=== PATIENT | male | born 1970 ===

== ENCOUNTER 2018-01-17 06:00 | Day surgery (SDC) | payer OTHER ==
[~2018-01-17] VITALS: Ht 167.6 cm; Wt 99.8 kg
[~2018-01-17 06:00] MED LIST: AFEDITAB CR60 MG PO; ARANESP60 MCG/1 M IJ; ASA81 MG PO; COZAAR100 MG PO; FOLIC ACID1 MG PO; LANTUS SOL100 UNIT/1; LASIX20 MG PO; LIPITOR20 MG PO; LOPRESSOR25 MG PO; ROCALTROL0.25 MCG PO; TOPROL XL50 M1 PO
[2018-01-18] MEDS ORDERED: INTESTINEX680 M1 PO (08:24)
[2018-01-18] MEDS ORDERED: ULTRACET PO (08:24)
== END 2018-01-18 08:22 | disposition home or self-care (01) ==
LOC: CIR.AMB 06:00 → SURG 09:00 → EDSTATUS 09:00 → SURG 10:15 → O/R 11:23 → SURH 11:23 → CIR.AMB 01-18 08:22 → SURH 01-18 12:11
DX: D12.8 Benign neoplasm of rectum (principal); N18.6 End stage renal disease; I13.11 Hypertensive heart and chronic kidney disease without heart failure, with stage 5 chronic kidney disease, or end stage renal disease; D12.5 Benign neoplasm of sigmoid colon; Z99.2 Dependence on renal dialysis; E66.01 Morbid (severe) obesity due to excess calories; D50.0 Iron deficiency anemia secondary to blood loss (chronic); D63.1 Anemia in chronic kidney disease

== ENCOUNTER 2018-06-27 10:29 | Inpatient (IN) | payer OTHER ==
[~2018-06-27] VITALS: Ht 167.6 cm; Wt 102.1 kg
[~2018-06-27 10:29] MED LIST changes: +INTESTINEX680 M1 PO; +ULTRACET PO
[2018-07-15] MEDS ORDERED: LASIX20 MG PO (13:06)
[2018-07-15] MEDS ORDERED: CARdura 4MG TABLET PO (13:06)
[2018-07-15] MEDS ORDERED: COZAAR100 MG PO (13:06)
[2018-07-15] MEDS ORDERED: TAMSULOSIN HCL0.4 MG PO (13:06)
[2018-07-15] MEDS ORDERED: NIFEDIPINE ER60 MG PO (13:06)
[2018-07-15] MEDS ORDERED: LIPITOR20 MG PO (13:06)
[2018-07-15] MEDS ORDERED: METOPROLOL TART50 MG PO (13:06)
[2018-07-15] MEDS ORDERED: HYOSCYAMINE0.125 M1 SL (13:06)
[2018-07-15] MEDS ORDERED: Intestinex CAP PO (13:06)
[2018-07-15] MEDS ORDERED: ROCALTROL0.25 MCG PO (13:06)
== END 2018-07-15 14:13 | disposition home or self-care (01) | DRG 329 ==
LOC: SURH 07-04 08:30 → O/R 07-04 08:30 → SURH 07-04 13:00
PROVIDERS: ADMIT Surgery
PROC: 07TC4ZZ Resection of Pelvis Lymphatic, Percutaneous Endoscopic Approach (ICD-10-PCS; 2018-07-04)
PROC: 0DJD8ZZ Inspection of Lower Intestinal Tract, Via Natural or Artificial Opening Endoscopic (ICD-10-PCS; 2018-07-04)
PROC: 4A12X4Z Monitoring of Cardiac Electrical Activity, External Approach (ICD-10-PCS; 2018-07-04)
PROC: 0DTN4ZZ Resection of Sigmoid Colon, Percutaneous Endoscopic Approach (ICD-10-PCS; principal; 2018-07-04 13:00)
PROC: 5A1D70Z Performance of Urinary Filtration, Intermittent, Less than 6 Hours Per Day (ICD-10-PCS; 2018-07-05)
PROC: BW28ZZZ Computerized Tomography (CT Scan) of Head (ICD-10-PCS; 2018-07-09)
PROC: 3E0F7GC Introduction of Other Therapeutic Substance into Respiratory Tract, Via Natural or Artificial Opening (ICD-10-PCS; 2018-07-11)
PROC: 4A033R1 Measurement of Arterial Saturation, Peripheral, Percutaneous Approach (ICD-10-PCS; 2018-07-11)
DX: D12.7 Benign neoplasm of rectosigmoid junction (principal); N18.6 End stage renal disease; I13.11 Hypertensive heart and chronic kidney disease without heart failure, with stage 5 chronic kidney disease, or end stage renal disease; R65.10 Systemic inflammatory response syndrome (SIRS) of non-infectious origin without acute organ dysfunction; J98.11 Atelectasis; R59.0 Localized enlarged lymph nodes; R33.8 Other retention of urine; R41.82 Altered mental status, unspecified; R50.82 Postprocedural fever; D50.0 Iron deficiency anemia secondary to blood loss (chronic); D63.1 Anemia in chronic kidney disease; E66.01 Morbid (severe) obesity due to excess calories; E11.9 Type 2 diabetes mellitus without complications; E78.49 Other hyperlipidemia; Z99.2 Dependence on renal dialysis